=== PATIENT | male | born 1960 | race Caucasian/White ===

== ENCOUNTER 2023-11-07 06:27 | Day surgery (SDC) | payer OTHER, SELFPAY ==
--- NOTE | 2023-11-07 | PATH_ITS ---
[facility] Accession Number: [id number] No. of containers..01 Tissue . 01 Material submitted: . bone - LEFT SECOND METATARSAL . 01 Diagnosis: BONE, LEFT SECOND METATARSAL, EXCISION: Fragments of bone and periosteal soft tissue with reactive changes. Negative for acute or significant chronic inflammation. Histologic features diagnostic for aseptic necrosis not seen. Negative for malignancy. MRV 11/09/2023 1559 Local . 01 Electronically signed: . Concetta Alves MD, Pathologist NPI- [id number] . 01 Gross description: . Received in formalin with two patient identifiers and left second metatarsal, are multiple irregular fragments of bone aggregating to 2.4 x 2.3 x 1.7 cm. Sectioning reveals nickerson trabecular osseous tissue that is relatively difficult to section with a scalpel. Material Planner sections are submitted in A1 following decalcification. ([id number]) /MRV 11/08/2023 1728 Local . 01 Pathologist provided ICD-10: M87.075, L97.522 . 01 CPT . 510883, [id number] Specimen Comment: A courtesy copy of this report has been sent to [facility] Pathology Performed at: [address], [place], [place] [id number] MD Garrick Cleary MD Phone: [phone]
--- NOTE | 2023-11-07 05:45 | P.HP_ITS ---
History of Present Illness History of Present Illness Chief complaint: Left Osteotomy Toe Narrative: 63 year old male here for pre-op. Patient is prepared to proceed with surgical intervention due to chronicity of the wound in relation to diseased joint to the left foot. The wound has been recurring for many years. Patient denies n/v/f/c/sob/cp. [facility] Medical History (Updated 11/03/23 @ 16:11 by Domitila Preston, RN) Foot ulcer, left GERD (gastroesophageal reflux disease) Seizure disorder HLD (hyperlipidemia) Essential hypertension Diabetic polyneuropathy Diabetes mellitus Surgical History (Updated 11/03/23 @ 16:10 by Domitila Preston, RN) Hx of tonsillectomy Meds Home Medications and Allergies Home Medications Medication Instructions Recorded Confirmed Type aspirin 81 mg tablet,delayed 81 mg PO DAILY 11/03/23 11/03/23 History release calcitonin (salmon) 200 1 spray intranasal (ALT) DAILY 11/03/23 11/03/23 History unit/actuation nasal spray empagliflozin 10 mg tablet 10 mg PO DAILY 11/03/23 11/03/23 History (Jardiance) ezetimibe 10 mg tablet 10 mg PO DAILY 11/03/23 11/03/23 History fluoxetine 20 mg capsule 20 mg PO DAILY 11/03/23 11/03/23 History fluticasone propionate 50 1 spray intranasal DAILY 11/03/23 11/03/23 History mcg/actuation nasal spray,suspension insulin NPH isoph U-100 human 100 25 unit SUBCUT BID 11/03/23 11/03/23 History unit/mL subcutaneous suspension (Humulin N NPH U-100 Insulin (isophane susp)) levetiracetam 1,000 mg tablet 1,000 mg PO BID 11/03/23 11/03/23 History losartan 100 mg tablet 50 mg PO DAILY 11/03/23 11/03/23 History metformin 500 mg tablet 1,000 mg PO BID 11/03/23 11/03/23 History omeprazole 20 mg tablet,delayed 20 mg PO Q OTHER DAY 11/03/23 11/03/23 History release potassium citrate 5 mEq (540 mg) 5 meq PO BID 11/03/23 11/03/23 History tablet,extended release simvastatin 80 mg tablet 80 mg PO BEDTIME 11/03/23 11/03/23 History Allergies Allergy/AdvReac Type Severity Reaction Status Date / Time No Known Drug Allergies Allergy Verified 11/03/23 16:11 Exam Skin Other: full-thickness ulcer at left plantar second metatarsal head with no acute SOI. Extrem Other: limited range of motion to left second MTP joint. Assessment & Plan Assessment & Plan narrative: 1. Left second metatarsal resection 2. Left foot skin substitute application Patient seen and evaluated. Surgical plan: left foot metatarsectomy. Risks and benefits of the procedure discussed with all questions answered to patient's satisfaction. Reviewed potential complications that may include but not limited to the following: DVT, failure to resolve all symptoms, infection, nerve injury, bleeding, recurrence, or wound. Reviewed surgical technique and general aftercare protocols. All questions answered to patient's satisfaction with no guarantees made. Patient verbalized understanding and agreed with surgical plan. RTC for post-op. Time-Based Coding :: [TOTAL MINUTES] spent with patient and on the chart (including review of chart, obtaining history, exam, reviewing outside data, placing orders, documenting exam and treatment plan, and counseling patient) on [DATE].
--- NOTE | 2023-11-07 05:45 | PM.PREOP ---
Pre-operative Note Interval Note History & Physical reviewed/Exam performed by Physician: Yes Changes to H&P: No
[2023-11-07 08:06] VITALS: BP 137/81; PULSE 75; RESP 16; TEMP 36.7; O2SAT 97; BMI 36.5
[2023-11-07] MEDS: LACTATED RINGERS 1,000 ML 42 ML IV ×2 (08:16→09:54)
[2023-11-07] MEDS: CEFAZOLIN 2 GM/100 ML PREMIX 100 ML IV (09:50)
--- NOTE | 2023-11-07 10:07 | SUR.OPER ---
Supine on padded OR bed, head on pillow, arms secured on padded arm boards at <90 degrees abduction, legs uncrossed, safety belt at thigh, tape over blanket over non-operative leg. Bump under left hip.
[2023-11-07] MEDS: LIDOCAINE 1% 20 ML INJ (10:17)
[2023-11-07] MEDS: BUPIVACAINE 0.5% (PF) 30 ML VIAL INJ (10:18)
[2023-11-07 11:24] VITALS: BP 135/75; PULSE 83; RESP 16; TEMP 36.2; O2SAT 98
[2023-11-07 11:29] VITALS: BP 139/71; PULSE 82; RESP 16; O2SAT 98
[2023-11-07 11:34] VITALS: BP 139/71; PULSE 81; RESP 16; O2SAT 98
[2023-11-07 11:40] VITALS: BP 136/70; PULSE 82; RESP 16; TEMP 36.2; O2SAT 98
--- NOTE | 2023-11-09 23:07 | P.OP_ITS ---
Operative Date/Time/Diagnoses Date of procedure: 11/07/23 Pre-op diagnosis: 1. Left second metatarsal degenerative changes 2. Left foot chronic diabetic ulcer Post-op diagnosis: same Procedure & Clinicians Procedure: 1. Left foot second metatarsectomy 2. Left foot skin substitute application Same procedure as scheduled: Yes Surgeon: Marcelo Hamilton Click Yes if Unassisted: Yes Anesthesia Type: General Operative Notes Findings: Enlarged and flattened left second metatarsal head Closure Type: primary Specimen(s): other (Second metatarsal head to pathology) Prosthetic devices, grafts, tissues, transplants, or devices: Patient was identified and brought into operating room. Estimated Blood Loss (mL): 25 Tourniquet time (min): 36 Procedure in detail: Patient was identified and brought into operating room on [facility] and transferred onto operating table in supine position. An ankle tourniquet was applied over well-padded surface. Local anesthesia was administered using 10 cc 1% lidocaine plain. General anesthesia was administered. Left foot was prepped and draped in usual sterile fashion followed by official timeout with surgical team all in agreement. Attention was directed to left plantar forefoot. Full-thickness ulcer at central forefoot was debrided down to subcutaneous tissue using # 15 scalpel without incidence. Wound was noted with tunneling down to level of plantar fascia, and deep wound culture was taken. Hemostasis was achieved with pressure and covered with saline and gauze. Attention was then directed to left dorsal second metatarsophalangeal joint. A linear incision was made using a # 15 scalpel, and dissection was carried out down to level of the bone with significant degenerative changes noted. A # 15 scalpel was used to release the collateral ligaments after uncovering the joint line. A sagittal saw was used to excise the bone at the neck of metatarsal, which was sent to pathology for gross evaluation. Procedure sites were irrigated using copious saline. All outer gloves were replaced with new sterile gloves, and previously used instruments were set aside. Bone graft and wax were applied to resected margin, and AmnioEffect was trimmed and implanted to decrease scarring and promote wound healing. As a separate procedure, an addition piece AmnioEffect was applied to plantar ulcer wound base. Dorsal foot incision was then closed using 3-0 and 4-0 vicryls and 3-0 and 4-0 nylons. Sterile dressing was applied to both surgical si geo using iodine, Adaptic, gauze, Kerlix, and cast padding. A posterior splint was made for immobilization and secured with ealstic bandage wraps. Patient toelrated proceure without complcation and was trasnferred out of operating room with all vital signs stable. Complications: none Post-operative Condition: stable Disposition: same day surgery Plan for aftercare: NWB to surgical limb. Keep dressing clean, dry, and intact. Elevate above heart. Follow-up as scheduled.
== END 2023-11-07 11:57 | disposition home or self-care (01) ==
PROVIDERS: PCP Family Medicine; Referring Provider Podiatrist Foot & Ankle Surgery; Visit Provider Podiatrist Foot & Ankle Surgery
PROC: (CPT 28140; principal; 2023-11-07 09:15)
DX: M87.075 Idiopathic aseptic necrosis of left foot (principal); L97.522 Non-pressure chronic ulcer of other part of left foot with fat layer exposed
CPT/HCPCS: 28140; 15275; 87070; 87075; 87077; 87147; 87186; 87205; J0690; J2704; J3010; Q4187

== ENCOUNTER 2024-01-02 06:39 | Day surgery (SDC) | payer OTHER, SELFPAY ==
[2024-01-02 07:11] VITALS: BMI 37.8
[2024-01-02 07:20] VITALS: BP 139/80; PULSE 80; RESP 17; TEMP 36.1; O2SAT 96
[2024-01-02] MEDS: LACTATED RINGERS 1,000 ML 42 ML IV (07:28)
--- NOTE | 2024-01-02 08:19 | PM.HP.1 ---
History of Present Illness History of Present Illness Chief complaint: Left Incision and Drainage Wound Narrative: 63 M with DMII and peripheral neuropathy continues to have unresolved hematoma to previous procedure site. Informed decision was made to proceed with OR washout. Patient denies n/v/f/c/sob/cp. [facility] Medical History Foot ulcer, left GERD (gastroesophageal reflux disease) Seizure disorder HLD (hyperlipidemia) Essential hypertension Diabetic polyneuropathy Diabetes mellitus Surgical History Hx of tonsillectomy Social History household members: spouse Smoking Status: Former smoker alcohol intake: former Meds Home Medications and Allergies Home Medications Medication Instructions Recorded Confirmed Type aspirin 81 mg tablet,delayed 81 mg PO DAILY 11/03/23 01/02/24 History release calcitonin (salmon) 200 1 spray intranasal (ALT) DAILY 11/03/23 01/02/24 History unit/actuation nasal spray empagliflozin 10 mg tablet 10 mg PO DAILY 11/03/23 01/02/24 History (Jardiance) ezetimibe 10 mg tablet 10 mg PO DAILY 11/03/23 01/02/24 History fluoxetine 20 mg capsule 20 mg PO DAILY 11/03/23 01/02/24 History fluticasone propionate 50 1 spray intranasal DAILY 11/03/23 01/02/24 History mcg/actuation nasal spray,suspension insulin NPH isoph U-100 human 100 25 unit SUBCUT BID 11/03/23 01/02/24 History unit/mL subcutaneous suspension (Humulin N NPH U-100 Insulin (isophane susp)) levetiracetam 1,000 mg tablet 1,000 mg PO BID 11/03/23 01/02/24 History losartan 100 mg tablet 50 mg PO DAILY 11/03/23 01/02/24 History metformin 500 mg tablet 1,000 mg PO BID 11/03/23 01/02/24 History omeprazole 20 mg tablet,delayed 20 mg PO Q OTHER DAY 11/03/23 01/02/24 History release potassium citrate 5 mEq (540 mg) 5 meq PO BID 11/03/23 01/02/24 History tablet,extended release simvastatin 80 mg tablet 80 mg PO BEDTIME 11/03/23 01/02/24 History oxycodone-acetaminophen 5 mg-325 1 tab PO Q6H PRN pain #20 tabs 11/07/23 01/02/24 Rx mg tablet (Percocet) Allergies Allergy/AdvReac Type Severity Reaction Status Date / Time hydromorphone [From Dilaudid] AdvReac hallucinati Verified 11/07/23 08:02 ons Exam Vital Signs (past 8 hours): - 01/02/24 07:20 Temperature 96.9 F L Pulse Rate 80 Respiratory Rate 17 Blood Pressure 139/80 Pulse Oximetry 96 Oxygen Delivery Method Room Air Oxygen Delivery Method Room Air Extrem Other: Left foot: Increased swelling to left forefoot second ray. Assessment & Plan Assessment & Plan narrative: 1. Left foot hematoma. Surgical plan: left foot washout and all necessary procedures. Risks and benefits reviewed with all questions answered to satisfaciton. Time-Based Coding :: [TOTAL MINUTES] spent with patient and on the chart (including review of chart, obtaining history, exam, reviewing outside data, placing orders, documenting exam and treatment plan, and counseling patient) on [DATE].
--- NOTE | 2024-01-02 08:21 | PM.PREOP ---
Pre-operative Note Interval Note History & Physical reviewed/Exam performed by Physician: Yes Changes to H&P: No
[2024-01-02] MEDS: CEFAZOLIN 2 GM/100 ML PREMIX 100 ML IV (08:30)
--- NOTE | 2024-01-02 08:54 | SUR.OPER ---
Supine on padded OR bed, head on pillow, arms secured on padded arm boards at <90 degrees abduction, legs uncrossed, safety belt at waist, tape over blanket over lower right leg, left leg draped free with gel bump under thigh.
[2024-01-02] MEDS: SODIUM CHLORIDE IRRIG SOLUTION 3,000 ML, GENTAMICIN 240 MG IRR (09:05)
[2024-01-02] MEDS: LIDOCAINE 1% 20 ML INJ (09:16)
[2024-01-02] MEDS: BUPIVACAINE 0.25% W/ EPI (PF) 10 ML VIAL 20 ML INJ (09:17)
[2024-01-02 09:49] VITALS: BP 124/74; PULSE 76; RESP 16; TEMP 36.3; O2SAT 98
--- NOTE | 2024-01-02 09:51 | SUR.PHASEII ---
Pt. stable straight to phase 2. from or. Vss, alert and oriented mara p.o.
[2024-01-02 09:58] VITALS: BP 122/75; PULSE 78; RESP 16; TEMP 36.2; O2SAT 98
--- NOTE | 2024-01-15 19:29 | PM.OP.1 ---
Operative Date/Time/Diagnoses Date of procedure: 01/02/24 Pre-op diagnosis: 1. Left foot postprocedural hematoma Post-op diagnosis: same Procedure & Clinicians Procedure: 1. Left foot incision and drainage Same procedure as scheduled: Yes Indications: Unresolved hemorrhagic foreign body granuloma of left foot Surgeon: Marcelo Hamilton Click Yes if Unassisted: Yes Anesthesia Type: MAC +/- and Local Operative Notes Findings: Devitalized tissue and bone wax Closure Type: primary Specimen(s): other (Deep wound swab culture) Prosthetic devices, grafts, tissues, transplants, or devices: AmnioFix 2 x 3 cm Estimated Blood Loss (mL): 25 Tourniquet time (min): 25 Procedure in detail: Patient was identified and brought into operating room on [facility] and transferred onto operating table in supine position. An ankle tourniquet was applied over well-padded surface. Local anesthesia was administered using 8 cc 1% lidocaine plain. Monitored anesthesia care was administered. Left foot was prepped and draped in usual sterile fashion followed by official timeout with surgical team all in agreement. Attention was then directed to left dorsal second metatarsophalangeal joint. A linear incision was made using a # 15 scalpel, and dissection was carried out down to level of second metatarsal distal stump. Devitalized hemorrhagic tissue, coagulated blood, and bone wax were encountered along the path, which were sharply removed using a hemostat, rongeur, and bone curette. Deep wound culture was then obtained, which was sent to microbiology for culture and sensitivity. Surgical site was irrigated copiously using 3 liters of saline mixed with 240 mg of gentamicin. All outer gloves were replaced with new sterile gloves, and previously used instruments were set aside. AmnioFix was implanted near the surface to decrease scarring and increase wound healing potential, and incision was closed using 3-0 and 4-0 nylons. Tourniquet was released prior to closure with adequate perfusion noted, and 6 cc 0.25% marcaine plain was administered. Patient tolerated procedure without complication and was transferred to the post-anesthesia care unit with all vital signs stable. Post-operative Condition: stable Disposition: same day surgery Plan for aftercare: NWB to surgical limb, elevate above heart, ice behind knee, keep dressing clean dry and intact, and return to clinic as scheduled.
== END 2024-01-02 10:14 | disposition home or self-care (01) ==
PROVIDERS: PCP Family Medicine; Referring Provider Podiatrist Foot & Ankle Surgery; Visit Provider Podiatrist Foot & Ankle Surgery
PROC: (CPT 10140; principal; 2024-01-02 07:45)
DX: L76.32 Postprocedural hematoma of skin and subcutaneous tissue following other procedure (principal)
CPT/HCPCS: 10140; 87070; 87075; 87205; J0690; J2250; J2704; J3010